=== PATIENT | female | born 1955 | race Caucasian/White ===

== ENCOUNTER 2024-05-25 15:57 | Outpatient (CLI) | payer BC | END 2024-05-25 15:58 | disposition home or self-care (01) | LOC: NAV RAD 15:57 | PROVIDERS: ATTEND Family Medicine | DX: M25.532 Pain in left wrist (principal); M25.571 Pain in right ankle and joints of right foot; M18.12 Unilateral primary osteoarthritis of first carpometacarpal joint, left hand; S82.831A Other fracture of upper and lower end of right fibula, initial encounter for closed fracture ==